=== PATIENT | female | born 1935 | race Two or more races ===

== ENCOUNTER 2021-05-13 13:25 | Emergency (ER) | payer SELFPAY ==
[~2021-05-13] VITALS: Ht 152.4 cm; Wt 63.5 kg
[2021-05-13 15:46] LABS: Basophils # (auto) 0.1 10 ^3/uL (0-0.2); Basophils % (auto) 0.8 % (0.0-2.0); Eosinophils # (auto) 0.1 10 ^3/uL (0-0.8); Eosinophils % (auto) 0.7 % (0.0-7.0); Hematocrit 39.5 % (36.0-46.0); Hemoglobin 13.7 g/dL (12.2-16.2); Lymphocytes # (auto) 1.6 10 ^3/uL (0.4-5.4); Lymphocytes % (auto) 16.7 % (10.0-50.0); Mean Corpuscular Hemoglobin 31.1 pg (28.0-32.0); Mean Corpuscular Hgb Conc. 34.6 g/dL (32.0-36.0); Monocytes # (auto) 0.7 10 ^3/uL (0-1.3); Monocytes % (auto) 7.3 % (0.0-12.0); Neutrophils # (auto) 7.3 10 ^3/uL (1.6-8.6); Neutrophils % (auto) 74.5 % (37.0-80.0); Nucleated Red Blood Cells % 0.1 %; Red Blood Cells 4.39 10^6/uL (4.0-5.20); Red Cell Distribution Width 13.9 % (11.8-14.3); White Blood Cell 9.8 10^3/uL (4.4-10.8)
[2021-05-13 16:01] LABS: INR 1.04 (0.9-1.15); Partial Thromboplastin Time 23.6 sec (23.6-33.0)
[2021-05-13 16:06] LABS: Albumin 3.4 g/dL (3.4-5.0); Calcium 8.4 mg/dL (8.5-10.1); Potassium 4.7 mmol/L (3.5-5.1)
[2021-05-13 16:11] LABS: BUN/Creatinine Ratio 31.3; Bilirubin, Total 0.7 mg/dL (0.2-1.0)
[2021-05-13 16:50] VITALS: BP 131/67
== END 2021-05-13 17:07 | disposition home or self-care (01) ==
LOC: ER 13:25
DX: R04.0 Epistaxis (principal); J01.00 Acute maxillary sinusitis, unspecified; I10 Essential (primary) hypertension
CPT/HCPCS: 36415; 71045; 80053; 84484; 85025; 85610; 85730